=== PATIENT | female | born 1965 | race American Indian/Alaskan Native ===

== ENCOUNTER 2021-01-30 12:00 | Outpatient (CLI) | payer BC ==
[2021-01-30 12:35] LABS: Basophils % (Auto) 0.6 % (0.0-1.8); Eosinophils # (Auto) 0.2 K/mm3 (0.0-0.4); Eosinophils % (Auto) 2.2 % (0.0-4.3); Hematocrit 42.3 % (30.3-42.9); Hemoglobin 13.7 gm/dl (10.1-14.3); Lymphocytes # (Auto) 3.2 K/mm3 (1.2-5.4); Lymphocytes % (Auto) 42.5 % (13.4-35.0); Mean Corpuscular HGB Conc 32 % (30-34); Mean Corpuscular Volume 88 fl (79-97); Monocytes # (Auto) 0.6 K/mm3 (0.0-0.8); Monocytes % (Auto) 8.1 % (0.0-7.3); Platelet Count 213 K/mm3 (140-440); Red Blood Count 4.83 M/mm3 (3.65-5.03)
[2021-01-30 12:50] LABS: % Iron Saturation 15.44 %; Alanine Aminotransferase 18 units/L (7-56); Albumin 3.6 g/dL (3.9-5); BUN/Creatinine Ratio 19; Blood Urea Nitrogen 15 mg/dL (7-17); Calcium 9.5 mg/dL (8.4-10.2); Chol/HDL Ratio 3.69 %; HDL Cholesterol 46 mg/dL (40-59); Hemolysis Index 10; Iron 46 ug/dL (37-170); LDL Cholesterol,Direct 118 mg/dL (50-130); Total Iron Binding Capacity 298 mcg/dL (250-450)
[2021-02-02 13:51] LABS: Vitamin D, 25-OH, D2 9 ng/mL
== END 2021-01-30 12:01 | disposition home or self-care (01) ==
LOC: LAB 12:00
PROVIDERS: ATTEND Surgery
DX: E11.9 Type 2 diabetes mellitus without complications (principal); E66.01 Morbid (severe) obesity due to excess calories; K30 Functional dyspepsia; E55.9 Vitamin D deficiency, unspecified; K90.9 Intestinal malabsorption, unspecified
CPT/HCPCS: 36415; 80053; 80061; 82306; 82607; 82728; 83036; 83550; 84443; 85025; 85730

== ENCOUNTER 2021-03-16 08:30 | Outpatient (CLI) | payer BC ==
--- NOTE | 2021-03-16 12:34 | Fluoroscopy Report ---
BARIUM SWALLOW Indication: MORBID OBESITY. Technique: Single and double contrast barium technique utilized to evaluate the esophagus. FINDINGS: To begin the exam, swallowing was evaluated in the lateral position under direct fluorosco py. Swallowing was normal. No mucosal irregularity, mass, mass effect, or critical stenosis. There were no abnormal tertiary c ontractions as seen with dysmotility. No gastroesophageal reflux. IMPRESSION: Unremarkable exam. Fluoroscopic time: 1.0 minutes Number of fluoroscopic images: 32 Signer Name: Henry Angelo Jr, MD Signed: 03/16/2021 12:30 PM Workstation Name: [id number]
--- NOTE | 2021-03-19 11:19 | Treadmill Report ---
[facility] Test Date: 2021-03-16 Test Time: 10:19:00 Pat Name: THOR SERRANO Department: Room: Gender: F Tour Escort: Laura German : 1965 Requested By: JAVIER NAZARIO Order Number: [id number] Reading MD: Luis Alberto Amaro Interpretive Statements 1.Good exercise tolerance. 2.negative for angina and ischemia. 3.Low risk study. Electronically Signed On 03-19-2021 11:18:56 EDT by Luis Alberto Amaro
--- NOTE | 2021-03-19 17:42 | Electrocardiograph Report ---
[facility] Test Date: 2021-03-16 Test Time: 09:58:11 Pat Name: THRO SERRANO Department: Room: Gender: F Salesperson Furniture: ANGELA : 1965 Requested By: JAVIER NAZARIO Order Number: [id number] Reading MD: Kaiser Maurer Measurements Intervals [place] Rate: 68 P: 35 NM: 141 QRS: 19 QRSD: 100 T: 43 QT: 417 QTc: 445 Interpretive Statements Sinus rhythm Probable left ventricular hypertrophy No previous ECG available for comparison Electronically Signed On 03-19-2021 17:41:39 EDT by Kaiser Maurer
== END 2021-03-16 08:31 | disposition home or self-care (01) ==
LOC: CARD 08:30
PROVIDERS: ATTEND Surgery
DX: E66.01 Morbid (severe) obesity due to excess calories (principal)
CPT/HCPCS: 74220; 93005; 93017

== ENCOUNTER 2021-05-08 06:34 | Day surgery (SDC) | payer BC ==
[2021-05-08] MEDS ORDERED: SODIUM CHLORIDE 0.9% 1000 ML 1,000 ML IV SCH (07:00)
--- NOTE | 2021-05-08 07:31 | Anesthesia Day of Surgery ---
Anesthesia Day of Surgery - Day of Surgery Patient Examined: Yes Patient H&P Reviewed: Yes Patient is NPO: Yes
--- NOTE | 2021-05-08 07:31 | Anesthesia Consultation ---
Anesthesia Consult and Med Hx Date of service: 05/08/21 - Airway Anesthetic Teeth Evaluation: Good ROM Head & Neck: Adequate Mental/Hyoid Distance: Adequate Mallampati Class: Class III Intubation Access Assessment: Possibly Difficult - Pre-Operative Health Status ASA Pre-Surgery Classification: ASA3 Proposed Anesthetic Plan: MAC - Pulmonary Hx Sleep Apnea: No (snoring, no sleep study done) - Cardiovascular System Hx Hypertension: Yes - Endocrine Hx Hypothyroidism: Yes - Other Systems Hx Obesity: Yes (BMI 49.8)
[2021-05-08] MEDS ORDERED: INSULIN LISPRO 100 UNIT/ML SUB-Q ONE (08:20)
[2021-05-08] MEDS ORDERED: propofoL 200 MG/20 ML VIAL IV ONE (08:24)
--- NOTE | 2021-05-08 08:40 | Operative Report ---
Operative Report Operative Report: DATE: 05/08/2021 SURGERY: Upper endoscopy. SURGEON: Barney Sanders M.D. PROCEDURE: EGD with biopsy PRE OP DX: morbid obesity, GERD POST OP DX: morbid obesity, GERD TYPE OF ANESTHESIA: MAC. ESTIMATED BLOOD LOSS: None. COMPLICATIONS: None. SPECIMENS REMOVED: antral biopsy FINDINGS: 1. Small hiatal hernia. 2. mild antral gastritis INDICATIONS:INDICATION FOR PROCEDURE: Patient is a 56-year-old female with a long history of morbid obesity. She is planned to have a weight loss procedure and is here for preoperative planning EGD. PROCEDURE DETAILS: After consent was reviewed, patient was taken back to the operating room where patient was placed in the left lateral decubitus position and a bite block was placed in the mouth. After a time-out was called, MAC anesthesia was initiated. I then passed the endoscope into her oropharynx, into her esophagus, visualized the entire esophagus, which was all within normal limits. Z-line was noted to about 35cm from incisors. I then visualized the stomach and the first portion of the duodenum and there were no abnormalities I could clearly visualize except for antral gastritis. A cold forceps biopsy of the antrum was taken and will be sent to pathology to evaluate for H.pylori. I then retroflexed the scope in the stomach and visualized the hiatus and I could see a small hiatal hernia. I then desufflated the stomach and removed the endoscope. Patient tolerated procedure well and was transferred to recovery room in good and stable condition.
--- NOTE | 2021-05-08 08:40 | Discharge Summary ---
Providers - Providers Date of Admission: 05/08/2021 Date of discharge: 05/08/21 Attending physician: JAVIER NAZARIO MD Primary care physician: ANNA SUN Hospitalization Reason for admission: pre-op planning egd Condition: Good Procedures: egd with bx Hospital course: Pt presented for a pre-op EGD as part of planning for up coming bariatric surgery. Procedure was uneventful and pt recovered well and was discharged to home. Disposition: 01 HOME / SELF CARE / HOMELESS Final Discharge Diagnosis (Prints w/discharge instructions): morbid obesity, dyspepsia Core Measure Documentation - Palliative Care Palliative Care/ Comfort Measures: Not Applicable - Core Measures Any of the following diagnoses?: none Exam - Physical Exam Narrative exam: unchanged from pre-op Plan Activity: advance as tolerated Diet: low carbohydrate Follow up with: ANNA SUN MD [Primary Care Provider] - 7 Days
--- NOTE | 2021-05-08 09:49 | Post Anesthesia Evaluation ---
- Post Anesthesia Evaluation Patient Participated: Yes Airway Patent: Yes Stable Respiratory Function: Yes Nausea/Vomiting: No Temp > 96.8F: Yes Pain Manageable: Yes Adequeate Hydration: Yes Anesthesia Complications: No
[2021-05-08 11:20] VITALS: BP 108/72
== END 2021-05-08 10:05 | disposition home or self-care (01) ==
LOC: GIO 06:34
PROVIDERS: ATTEND Surgery
DX: E66.01 Morbid (severe) obesity due to excess calories (principal); K21.9 Gastro-esophageal reflux disease without esophagitis; K30 Functional dyspepsia; K44.9 Diaphragmatic hernia without obstruction or gangrene; K29.50 Unspecified chronic gastritis without bleeding; E03.9 Hypothyroidism, unspecified; I10 Essential (primary) hypertension; Z68.42 Body mass index [BMI] 45.0-49.9, adult; Z79.899 Other long term (current) drug therapy; Z98.890 Other specified postprocedural states
CPT/HCPCS: 43239; 88305; 88342; J2704; J7030; J1815

== ENCOUNTER → 2021-05-10 | Outpatient (CLI) | payer BC | END | disposition home or self-care (01) | LOC: SLR 11:00 | PROVIDERS: ATTEND Surgery | DX: G47.30 Sleep apnea, unspecified (principal) | CPT/HCPCS: G0399 ==